=== PATIENT | female | born 1990 | race Caucasian/White ===

== ENCOUNTER 2020-01-06 13:37 | Emergency (ER) | payer OTHER ==
[2020-01-06 13:45] VITALS: BP 144/67; PULSE 63; TEMP 99; BMI 19.6
[2020-01-06] MEDS ORDERED: LOCK ITEM NR ONE (15:45)
[2020-01-06] MEDS ORDERED: IBUPROFEN 600 MG TABLET (FP) PO ONE ×2 (15:57→16:08)
== END 2020-01-06 16:46 | disposition home or self-care (01) ==
LOC: FER 13:37
DX: S16.1XXA Strain of muscle, fascia and tendon at neck level, initial encounter (principal)
CPT/HCPCS: 72125-TC; 84703; 99284-25